=== PATIENT | female | born 2000 | race Caucasian/White ===

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

== ENCOUNTER 2019-03-15 13:02 | Emergency (ER) | payer OTHER, MEDICAID ==
[2019-03-15 13:13] VITALS: BP 112/64
--- NOTE | 2019-03-15 13:26 | EDPHY ---
H & P Stated Complaint: c/o cough/ST/Chest burning- since Thur Time Seen by Provider: 03/15/19 13:13 HPI/ROS: CHIEF COMPLAINT: Runny nose, sore throat, dry cough HISTORY OF PRESENT ILLNESS: The patient is a healthy 18-year-old female who comes to the emergency department complaining of runny nose, sore throat and a nonproductive cough. She has had the symptoms for 4 days. No GI symptoms. No headache. No neck stiffness. No fevers. No history of asthma or respiratory disease. Mom was concerned because she sleeps in the basement and wondered if there could be a mold exposure. Severity: Mild Modifying factors: None REVIEW OF SYSTEMS: Constitutional: See HPI EENTM: See HPI Respiratory: denies: See HPI Cardiac: denies: chest pain, irregular heart rate, lightheadedness, palpitations Gastrointestinal/Abdominal: denies: abdominal pain, diarrhea, nausea, vomiting, blood streaked stools Genitourinary: denies: dysuria, frequency, hematuria, pain Musculoskeletal: denies: joint pain, muscle pain Skin: denies: lesions, rash, jaundice, bruising Neurological: denies: headache, numbness, paresthesia, tingling, dizziness, weakness Hematologic/Lymphatic: denies: blood clots, easy bleeding, easy bruising Immunologic/allergic: denies: HIV/AIDS, transplant 10 systems reviewed and negative except as noted EXAM: GENERAL: Well-appearing, overweight and in no acute distress. HEAD: Atraumatic, normocephalic. EYES: Pupils equal round and reactive to light, extraocular movements intact, sclera anicteric, conjunctiva are normal. ENT: TMs normal, nares patent, oropharynx clear without exudates. Moist mucous membranes. NECK: Normal range of motion, supple without lymphadenopathy or JVD. LUNGS: Breath sounds clear to auscultation bilaterally and equal. No wheezes rales or rhonchi. HEART: Regular rate and rhythm without murmurs, rubs or gallops. ABDOMEN: Soft, nontender, normoactive bowel sounds. No guarding, no rebound. No masses appreciated. BACK: No CVA tenderness, no spinal tenderness, step-offs or deformities EXTREMITIES: Normal range of motion, no pitting or edema. No clubbing or cyanosis. NEUROLOGICAL: Cranial nerves II through XII grossly intact. Normal speech, normal gait. 5/5 strength, normal movement in all extremities, normal sensation , PSYCH: Normal mood, normal affect. SKIN: Warm, dry, normal turgor, no visible rashes or lesions. Source: Patient Exam Limitations: No limitations - Personal History LMP (Females 10-55): 1-7 Days Ago Current Tetanus Diphtheria and Acellular Pertussis (TDAP): Yes - Medical/Surgical History Hx Asthma: No Hx Chronic Respiratory Disease: No Hx Diabetes: No Hx Cardiac Disease: No Hx Renal Disease: No Hx Cirrhosis: No Hx Alcoholism: No Hx HIV/AIDS: No Other PMH: right shoulder surg. labral repair . - Family History Significant Family History: No pertinent family hx - Social History Smoking Status: Never smoked Constitutional: Initial Vital Signs Temperature (C) 37 C 03/15/19 13:10 Heart Rate 75 03/15/19 13:10 Respiratory Rate 18 03/15/19 13:10 Blood Pressure 112/64 03/15/19 13:10 O2 Sat (%) 97 03/15/19 13:10 O2 Delivery Mode Room Air Allergies/Adverse Reactions: No Known Allergies Allergy (Verified 11/18/16 09:44) Home Medications: Medication Instructions Recorded Buspar (*) 03/15/19 Sertraline HCl 03/15/19 Medical Decision Making ED Course/Re-evaluation: Patient's symptoms are consistent with a viral upper respiratory tract infection. I encouraged rest, hydration and antipyretics. Mom asked about mold testing and I encouraged her to have someone inspect her home. We discussed follow-up and indications for returning to the emergency department. Differential Diagnosis: Partial list of the Differential diagnosis considered include but were not limited to; upper respiratory tract infection, sinusitis, otitis media, strep throat and although unlikely based on the history and physical exam, I also considered pneumonia, sepsis, meningitis. I discussed these differential diagnoses and the plan with the patient as well as the usual and expected course. The patient understands that the diagnosis is provisional and that in medicine we are not always correct and that further workup is often warranted. Usual and customary warnings were given. All of the patient's questions were answered. The patient was instructed to return to the emergency department should the symptoms at all worsen or return, otherwise to followup with the physician as we discussed. Departure - Departure Disposition: Home, Routine, Self-Care Clinical Impression: Upper respiratory disease Condition: Fair Instructions: Upper Respiratory Infection (ED) Referrals: Esme Medina, DO [Primary Care Provider] - 2-3 days, if not improved
== END 2019-03-15 13:34 | disposition home or self-care (01) ==
LOC: CED 13:02
DX: J06.9 Acute upper respiratory infection, unspecified (principal)
CPT/HCPCS: 99282-ER

== ENCOUNTER 2019-04-14 20:14 | Emergency (ER) | payer OTHER, MEDICAID | END 2019-04-14 20:45 | disposition home or self-care (01) | LOC: CED 20:14 ==